=== PATIENT | female | born 1985 | race Caucasian/White ===

== ENCOUNTER 2020-11-09 04:45 | Emergency (ER) | payer OTHER, SELFPAY ==
--- NOTE | 2020-11-09 05:28 | ER ---
Nurse's Notes [facility] Name: Cassandra Ramirez Age: 35 yrs Sex: Female : 1985 Arrival Date: 11/09/2020 Time: 04:54 Bed 17 Private MD: Diagnosis: Bipolar Disorder;Visit for medication refill Presentation: 11/09 05:11 Chief complaint: Patient states: Reports released from long-term on 10/07/20, given 30 day lp1 supply of psych medications and reports she is needing to have prescriptions refilled. Reports appt with [facility] in 2 weeks for mental health; Denies SI and HI. Coronavirus screen: Client denies travel out of the [place] in the last 14 days. At this time, the client does not indicate any symptoms associated with coronavirus-19. Ebola Screen: No symptoms or risks identified at this time. Initial Sepsis Screen: Does the patient meet any 2 criteria? No. Patient's initial sepsis screen is negative. Does the patient have a suspected source of infection? No. Patient's initial sepsis screen is negative. Risk Assessment: Do you want to hurt yourself or someone else? Patient reports no desire to harm self or others. Onset of symptoms was November 09, 2020. 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 - Social history:: Smoking status: Patient reports the use of cigarette tobacco products, smokes one-half pack cigarettes per day. Screenin:18 Abuse screen: Denies threats or abuse. Denies injuries from another. Nutritional lp1 screening: No deficits noted. Tuberculosis screening: No symptoms or risk factors identified. Fall Risk None identified. Assessment: 05:20 General: Appears in no apparent distress. comfortable, Behavior is calm, cooperative, rr5 appropriate for age. Pain: Denies pain. Neuro: Level of Consciousness is awake, alert, obeys commands, Oriented to person, place, time. Cardiovascular: Capillary refill < 3 seconds Patient's skin is warm and dry. Respiratory: Airway is patent Respiratory effort is even, unlabored, Respiratory pattern is regular, symmetrical. 05:30 Reassessment: Patient appears in no apparent distress at this time. Patient is alert, rr5 oriented x 3, equal unlabored respirations, skin warm/dry/pink. discharge instruction given and explained without complaints made. Psych: 05:18 [place] Suicide Severity Screening: In the past month, have you wished you were lp1 or wished you could go to sleep and not wake up? Patient responds "No." "In the past month, have you actually had any thoughts of killing yourself?" Patient responds "no.". 05:20 Safety Checks: Personal items have been removed. rr5 05:20 Subjective: Patient's mood is calm. Objective: Patient is cooperative, Speech is rr5 normal. Interventions:. Vital Signs: 05:11 BP 100 / 83; Pulse 90; Resp 18; Temp 97.1(TE); Pulse Ox 100% on R/A; Weight 92.53 kg lp1 (R); Height 5 ft. 5 in. (165.10 cm); 05:11 Body Mass Index 33.95 (92.53 kg, 165.10 cm) lp1 ED Course: 04:54 Patient arrived in ED. am4 05:09 Jorge Plolack MD is Attending Physician. mh7 05:14 Triage completed. lp1 05:14 Arm band placed on. lp1 05:24 Elio Farley MD is Referral Physician. mh7 05:26 Fran Montoya RN is Primary Nurse. rr5 05:26 Patient has correct armband on for positive identification. Bed in low position. rr5 05:27 No provider procedures requiring assistance completed. Patient did not have IV access rr5 during this emergency room visit. Administered Medications: No medications were administered Outcome: 05:26 Discharge ordered by . 7 05:27 Discharged to home ambulatory. rr5 05:27 Condition: stable 05:27 Discharge instructions given to patient, Instructed on discharge instructions, follow up and referral plans. Demonstrated understanding of instructions, follow-up care. 05:31 Patient left the ED. rr5 Signatures: Sherley Mijares RN RN lp1 Fran Montoya RN RN rr5 Jorge Pollack MD MD 7 Cassandra Hampton am4 Corrections: (The following items were deleted from the chart) 05:18 05:11 Chief complaint: Patient states: Reports released from long-term on 10/07/20, given lp1 30 day supply of psych medications and reports she is needing to have prescriptions refilled. Reports appt with [facility] in 2 weeks for mental health lp1
--- NOTE | 2020-11-09 05:28 | EDPHYS ---
Physician Documentation [facility] Name: Cassandra Ramirez Age: 35 yrs Sex: Female : 1985 Arrival Date: 11/09/2020 Time: 04:54 Bed 17 Private MD: ED Physician Jorge Pollack HPI: 11/09 05:28 This 35 yrs old Female presents to ER via Ambulatory with complaints of Psych mh7 Problem. 05:28 The patient presents to the emergency department with Need medication refill. 7 05:29 Onset: The symptoms/episode began/occurred 1 week(s) ago. Past psychiatric history: mh7 Prior diagnosis: bipolar disorder, schizophrenia, Anxiety. Associated signs and symptoms: Pertinent negatives: abdominal pain, anxiety, chest pain, chills, delusions, depression, fever, hallucinations, headache, homicidal ideation, nausea, night sweats, palpitations, paranoia, shortness of breath, substance abuse, suicide ideation, tremor, vomiting. 05:30 Severity of symptoms: At their worst the symptoms were No symptoms, in the emergency 7 department the symptoms None. 05:36 States that she was released from retirement last month and needs a refill of her mh7 psychiatric medications including Venlafaxine. She denies auditory or visual hallucinations. Denies suicidal or homicidal ideations.. 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 - Social history:: Smoking status: Patient reports the use of cigarette tobacco products, smokes one-half pack cigarettes per day. ROS: 05:30 Constitutional: Negative for fever, chills, and weight loss, Eyes: Negative for injury, mh7 pain, redness, and discharge, ENT: Negative for injury, pain, and discharge, Neck: Negative for injury, pain, and swelling, Cardiovascular: Negative for chest pain, palpitations, and edema, Respiratory: Negative for shortness of breath, cough, wheezing, and pleuritic chest pain, Abdomen/GI: Negative for abdominal pain, nausea, vomiting, diarrhea, and constipation, Back: Negative for injury and pain, : Negative for injury, bleeding, discharge, and swelling, MS/Extremity: Negative for injury and deformity, Skin: Negative for injury, rash, and discoloration, Neuro: Negative for headache, weakness, numbness, tingling, and seizure, Allergy/Immunology: Negative for hives, rash, and allergies, Endocrine: Negative for neck swelling, polydipsia, polyuria, polyphagia, and marked weight changes, Hematologic/Lymphatic: Negative for swollen nodes, abnormal bleeding, and unusual bruising. 05:30 Psych: Negative for auditory hallucinations, visual hallucinations, homicidal ideation, suicide gesture, suicidal ideation. Exam: 05:30 Constitutional: This is a well developed, well nourished patient who is awake, alert, mh7 and in no acute distress. Head/Face: Normocephalic, atraumatic. Eyes: Pupils equal round and reactive to light, extra-ocular motions intact. Lids and lashes normal. Conjunctiva and sclera are non-icteric and not injected. Cornea within normal limits. Periorbital areas with no swelling, redness, or edema. Neck: Trachea midline, no thyromegaly or masses palpated, and no cervical lymphadenopathy. Supple, full range of motion without nuchal rigidity, or vertebral point tenderness. No Meningismus. Chest/axilla: Normal chest wall appearance and motion. Nontender with no deformity. No lesions are appreciated. Cardiovascular: Regular rate and rhythm with a normal S1 and S2. No gallops, murmurs, or rubs. Normal PMI, no JVD. No pulse deficits. Respiratory: Lungs have equal breath sounds bilaterally, clear to auscultation and percussion. No rales, rhonchi or wheezes noted. No increased work of breathing, no retractions or nasal flaring. Abdomen/GI: Soft, non-tender, with normal bowel sounds. No distension or tympany. No guarding or rebound. No evidence of tenderness throughout. Back: No spinal tenderness. No costovertebral tenderness. Full range of motion. Skin: Warm, dry with normal turgor. Normal color with no rashes, no lesions, and no evidence of cellulitis. MS/ Extremity: Pulses equal, no cyanosis. Neurovascular intact. Full, normal range of motion. Neuro: Awake and alert, GCS 15, oriented to person, place, time, and situation. Cranial nerves II-XII grossly intact. Motor strength 5/5 in all extremities. Sensory grossly intact. Cerebellar exam normal. Normal gait. 05:30 Psych: Behavior/mood is pleasant, cooperative, Affect is calm, Oriented to person, place, time, Patient has no thoughts/intents to harm self or others. Judgement / Insight is normal. Memory is normal. Delusions/hallucinations are not present. Vital Signs: 05:11 BP 100 / 83; Pulse 90; Resp 18; Temp 97.1(TE); Pulse Ox 100% on R/A; Weight 92.53 kg lp1 (R); Height 5 ft. 5 in. (165.10 cm); 05:11 Body Mass Index 33.95 (92.53 kg, 165.10 cm) lp1 MDM: 05:22 Differential diagnosis: depression, Anxiety, Medication refill. Data reviewed: vital [facility] signs, nurses notes. Data interpreted: Pulse oximetry: on room air is 100 %. Interpretation: normal. Counseling: I had a detailed discussion with the patient and/or guardian regarding: the historical points, exam findings, and any diagnostic results supporting the discharge/admit diagnosis, lab results. 05:26 Patient medically screened. [facility] 05:30 Refusal of service: The patient/guardian displays adequate decision making capability [facility] and despite a detailed discussion of alternatives, benefits, risks, and consequences refuses: all lab tests. ED course: Well appearing, NAD, VSS, no focal neurological deficits. Patient declined lab work and decided instead to follow up with [facility] or another facility to get refill of her psychiatric medications.. Administered Medications: No medications were administered Disposition: 11/09/20 05:26 Discharged to Home. Impression: Bipolar Disorder, Visit for medication refill. - Condition is Stable. - Discharge Instructions: Bipolar Disorder. - Medication Reconciliation Form, Thank You Letter, Antibiotic Education, Prescription Opioid Use form. - Follow up: Private Physician; When: 1 - 2 days; Reason: Worsening of condition, Recheck today's complaints, Continuance of care, Re-evaluation by your physician. Follow up: Elio Farley MD; When: 1 - 2 days; Reason: Recheck today's complaints. - Problem is an ongoing problem. - Symptoms are unchanged. Signatures: Sherley Mijares RN RN lp1 Fran Montoya RN RN rr5 Jorge Pollack MD MD 7 Corrections: (The following items were deleted from the chart) 05:27 05:26 11/09/2020 05:26 Discharged to Home. Impression: Bipolar Disorder. Condition is mh7 Stable. Forms are Medication Reconciliation Form, Thank You Letter, Antibiotic Education, Prescription Opioid Use. Follow up: Private Physician; When: 1 - 2 days; Reason: Worsening of condition, Recheck today's complaints, Continuance of care, Re-evaluation by your physician. Follow up: Elio Farley; When: 1 - 2 days; Reason: Recheck today's complaints. [facility] 05:27 05:27 11/09/2020 05:26 Discharged to Home. Impression: Bipolar Disorder. Condition is mh7 Stable. Forms are Medication Reconciliation Form, Thank You Letter, Antibiotic Education, Prescription Opioid Use. Follow up: Private Physician; When: 1 - 2 days; Reason: Worsening of condition, Recheck today's complaints, Continuance of care, Re-evaluation by your physician. Follow up: Elio Farley; When: 1 - 2 days; Reason: Recheck today's complaints. Problem is an ongoing problem. Symptoms are unchanged. 7 05:31 05:27 11/09/2020 05:26 Discharged to Home. Impression: Bipolar Disorder; Visit for rr5 medication refill. Condition is Stable. Forms are Medication Reconciliation Form, Thank You Letter, Antibiotic Education, Prescription Opioid Use. Follow up: Private Physician; When: 1 - 2 days; Reason: Worsening of condition, Recheck today's complaints, Continuance of care, Re-evaluation by your physician. Follow up: Elio Farley; When: 1 - 2 days; Reason: Recheck today's complaints. Problem is an ongoing problem. Symptoms are unchanged. 7
[2020-11-09 05:36] VITALS: BP 100/83; TEMP 97.1; O2SAT 100
== END 2020-11-09 05:31 | disposition home or self-care (01) ==
LOC: ER 04:45
DX: F31.9 Bipolar disorder, unspecified (principal); F41.9 Anxiety disorder, unspecified; F17.210 Nicotine dependence, cigarettes, uncomplicated; Z76.0 Encounter for issue of repeat prescription
CPT/HCPCS: 99283